=== PATIENT | male | born 1955 | race Caucasian/White ===

== ENCOUNTER → 2016-11-20 | Outpatient (CLI) | payer MEDICARE, OTHER | LOC: RAD 15:15 | DX: R05 Cough (principal); J44.9 Chronic obstructive pulmonary disease, unspecified; Q89.3 Situs inversus | CPT/HCPCS: 71020 ==

== ENCOUNTER → 2020-10-14 | Outpatient (CLI) | payer MEDICARE, OTHER ==
[~2020-10-14] MED LIST: ADVAIR 100-501 EACH INH; AMITIZA24 MCG PO; ATORVASTATIN CA10 MG PO; AZULFIDINE 500500 MG PO; BENICAR20 MG PO; BREO ELLIPTA 11 EACH INH; CARDIZEM CD240 MG PO; CLONAZEPAM1 MG PO; COMBIVENT RESPIM4 GM INH; DILTIAZEM 24HR240 M1 PO; ESOMEPRAZOLE MA40 MG PO; FINASTERIDE5 MG PO; FLONASE 0.05% N16 GM; FLUTICASONE; GABAPENTIN600 MG PO; HYDROCHLOROTHIA25 MG PO; IPRATROPIU0.2 MG/1 M INH; KLONOPIN1 MG PO; LEVOTHYROXINE88 MC1 PO; LIPITOR10 MG PO; MICARDIS80 MG PO; MIRALAX17 GM PO; MOBIC15 MG PO; NEURONTIN600 MG PO; NEXIUM40 MG PO; POTASSIUM CHLO20 ME1 PO; POTASSIUM CHLO20 ME2 PO; PROSCAR5 MG PO; SULFASALAZINE500 MG PO; SYNTHROID88 MCG PO; VITAMIN D PO
== END ==
LOC: RAD 16:23
DX: J18.9 Pneumonia, unspecified organism (principal); J44.0 Chronic obstructive pulmonary disease with (acute) lower respiratory infection
CPT/HCPCS: 71046

== ENCOUNTER → 2020-11-01 | Outpatient (CLI) | payer MEDICARE, OTHER | LOC: KOH-I 09:46 | DX: Z87.891 Personal history of nicotine dependence (principal); J47.9 Bronchiectasis, uncomplicated; R91.1 Solitary pulmonary nodule | CPT/HCPCS: 71271 ==

== ENCOUNTER → 2020-11-24 | Day surgery (SDC) | payer MEDICARE, OTHER | END | disposition home or self-care (01) | LOC: OR 06:07 | DX: K63.5 Polyp of colon (principal); I10 Essential (primary) hypertension; J45.909 Unspecified asthma, uncomplicated; K21.9 Gastro-esophageal reflux disease without esophagitis; E78.5 Hyperlipidemia, unspecified; E03.9 Hypothyroidism, unspecified; F41.9 Anxiety disorder, unspecified; N40.0 Benign prostatic hyperplasia without lower urinary tract symptoms; Z87.891 Personal history of nicotine dependence; Z88.0 Allergy status to penicillin | CPT/HCPCS: J2704; J7120 ==

== ENCOUNTER → 2021-02-14 | Outpatient (CLI) | payer MEDICARE, OTHER | LOC: EXRD 11:40 | DX: M06.09 Rheumatoid arthritis without rheumatoid factor, multiple sites (principal); M19.072 Primary osteoarthritis, left ankle and foot | CPT/HCPCS: 73130; 73630 ==

== ENCOUNTER → 2021-12-01 | Outpatient (CLI) | payer BC, OTHER | LOC: KOH-I 10:46 | DX: Z87.891 Personal history of nicotine dependence (principal) | CPT/HCPCS: 71271 ==

== ENCOUNTER → 2022-03-22 | Outpatient (CLI) | payer BC, OTHER | LOC: KOH-I 03-20 11:00 | DX: R91.8 Other nonspecific abnormal finding of lung field (principal); J47.9 Bronchiectasis, uncomplicated | CPT/HCPCS: 71250 ==